=== PATIENT | male | born 1935 | race Two or more races ===

== ENCOUNTER 2021-07-21 15:30 | Emergency (ER) | payer OTHER ==
[~2021-07-21] VITALS: Ht 172.7 cm; Wt 103.9 kg
== END 2021-07-21 18:46 | disposition home or self-care (01) ==
LOC: ER 15:30
DX: E11.649 Type 2 diabetes mellitus with hypoglycemia without coma (principal); Z79.84 Long term (current) use of oral hypoglycemic drugs; H53.8 Other visual disturbances; R55 Syncope and collapse